=== PATIENT | female | born 2000 | race Caucasian/White ===

== ENCOUNTER → 2019-01-20 | Outpatient (CLI) | payer OTHER ==
--- NOTE | 2019-01-20 14:01 | RAD ---
Gastric Emptying Study Indication: Abdominal pain, 3-4 months. Retained gastric contents. Procedure: Anterior and posterior projection static images are obtained over the stomach following oral administration of 2 mCi of 99 M technetium sulfur colloid in a solid meal (egg and toast). Time points include an immediate baseline, and 1, 2, 3, and 4 hours post ingestion. Findings: There is progressive emptying of the stomach on sequential images. Percentage retention at... One hour is 76% (normal 34.8-91%). Two hours 44% (normal 2.7-60%). Three hours 19% (normal 0.5-28%). Four hours 1% (normal 0-10%). Impression: Normal 4 hour protocol gastric emptying study. Consensus Recommendations for Gastric Emptying Scintigraphy: A Joint Report of the [employer] and the Society of Nuclear Medicine: J. Nucl. Med. Technol. August 2007 vol. 36 no. 1 44-54 Grading for severity of delayed GE based on the 4-h value: grade 1 (mild): 11?20% retention at 4 h grade 2 (moderate): 21?35% retention at 4 h grade 3 (severe): 36?50% retention at 4 h grade 4 (very severe): >50% retention at 4 h. Electronically signed by: Tj Fortune MD (01/20/2019 1:58 PM) [id number]
== END ==
LOC: NM 08:00
PROVIDERS: ATTEND Internal Medicine Gastroenterology
DX: R10.10 Upper abdominal pain, unspecified (principal)
CPT/HCPCS: 78264; A9541